=== PATIENT | male | born 1970 | race Caucasian/White ===

== ENCOUNTER 2018-06-08 23:12 | Outpatient (CLI) | payer OTHER | END 2018-06-08 23:13 | disposition critical access hospital (66) | LOC: EMS 23:12 | PROVIDERS: ATTEND Surgery | DX: R40.20 Unspecified coma (principal) | CPT/HCPCS: A0425; A0429 ==

== ENCOUNTER 2018-06-08 23:28 | Emergency (ER) | payer OTHER ==
[2018-06-08] MEDS ORDERED: SODIUM CHLORIDE 0.9% 1,000 ML IV STA (23:40)
[2018-06-09 00:20] LABS: BASOPHILS % (AUTO) 0.4 %; EOSINOPHILS # (AUTO) 0.1 10^3/uL (0.0-0.7); EOSINOPHILS % (AUTO) 0.7 %; HGB - HEMOGLOBIN 14.3 g/dL (14.0-18.0); LYMPHOCYTES # (AUTO) 1.2 10^3/uL (1.5-3.5); LYMPHOCYTES % (AUTO) 14.5 %; MEAN CORPUSCULAR HEMOGLOBIN 29.5 pg (27.0-31.0); MEAN CORPUSCULAR HGB CONC 34.6 g/dL (32.0-36.0); MEAN CORPUSCULAR VOLUME 85.4 fL (80.0-94.0); MEAN PLATELET VOLUME 8.4 fL (7.4-11.4); MONOCYTES # (AUTO) 0.3 10^3/uL (0.0-1.0); MONOCYTES % (AUTO) 4.2 %; NEUTROPHILS # (AUTO) 6.5 10^3/uL (1.5-6.6); NEUTROPHILS % (AUTO) 80.2 %; PLT - PLATELET COUNT 221 10^3/uL (130-450); RED BLOOD COUNT 4.84 10^6/uL (4.70-6.10); RED CELL DISTRIBUTION WIDTH 13.8 % (12.0-15.0)
--- NOTE | 2018-06-09 00:22 | XRAY Report ---
Reason: Chest Pain Procedure Date: 06/09/2018 Accession Number: [id number] / [id number] Procedure: XR - Chest 1 View X-Ray CPT Code: 49839 FULL RESULT: EXAM: CHEST RADIOGRAPHY EXAM DATE: 06/09/2018 12:14 AM. CLINICAL HISTORY: Chest Pain. COMPARISON: None. TECHNIQUE: 1 view. FINDINGS: Lungs/Pleura: No alveolar consolidation or pleural effusion seen. No pneumothorax. Mediastinum: Within exam limitations, heart appears mildly enlarged. Other: None. IMPRESSION: 1. Mild cardiomegaly. No acute abnormality seen. RADIA
[2018-06-09 00:27] LABS: ALBUMIN 4.2 g/dL (3.2-5.5); ALBUMIN/GLOBULIN RATIO 1.2 (1.0-2.2); BILIRUBIN,TOTAL 0.6 mg/dL (0.2-1.0); CALCIUM 9.1 mg/dL (8.5-10.3); CREATININE 1.2 mg/dL (0.6-1.2); TOTAL PROTEIN 7.7 g/dL (6.7-8.2)
--- NOTE | 2018-06-09 01:00 | ED Physician Documentation ---
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 09/16/14 Ibuprofen [Motrin] 800 mg PO Q8H PRN #30 tablet 09/16/14 Oxycodone HCl/Acetaminophen 1 - 2 each PO Q6H PRN #30 tablet 09/16/14 [Percocet 5-325 mg Tablet] - Allergies Allergies/Adverse Reactions: Allergies Allergy/AdvReac Type Severity Reaction Status Date / Time No Known Drug Allergies Allergy Verified 06/08/18 23:34 - Social History Does the pt smoke?: No Smoking Status: Never smoker Does the pt drink ETOH?: Yes Does the pt have substance abuse?: No - Immunizations Immunizations are current?: Yes Immunizations: TDAP current <10years - POLST Patient has POLST: No Results - Vitals Vitals: Vital Signs - 24 hr 06/08/18 06/09/18 23:29 00:24 Temperature 36.4 C L Heart Rate 78 83 Respiratory 16 16 Rate Blood Pressure 132/90 H 129/76 O2 Saturation 97 98 Oxygen O2 Source Room air - Labs Labs: Laboratory Tests 06/08/18 06/08/18 06/08/18 00:04 00:04 00:04 WBC 8.0 RBC 4.84 Hgb 14.3 Hct 41.4 L MCV 85.4 MCH 29.5 MCHC 34.6 RDW 13.8 Plt Count 221 MPV 8.4 Neut # (Auto) 6.5 Lymph # (Auto) 1.2 L [place] # (Auto) 0.3 Eos # (Auto) 0.1 Baso # (Auto) 0.0 Absolute Nucleated RBC 0.00 Nucleated RBC % 0.0 Sodium 138 Potassium 3.8 Chloride 101 Carbon Dioxide 28 Anion Gap 9.0 BUN 16 Creatinine 1.2 Estimated GFR (MDRD) 65 L Glucose 159 H Calcium 9.1 Total Bilirubin 0.6 AST 46 H ALT 35 Alkaline Phosphatase 65 Troponin I < 0.04 Total Protein 7.7 Albumin 4.2 Globulin 3.5 Albumin/Globulin Ratio 1.2 Lipase 38 Departure - Departure Disposition: 01 Home, Self Care Clinical Impression: Syncope Qualifiers: Syncope type: unspecified Qualified Code(s): R55 - Syncope and collapse Condition: Stable Instructions: ED Syncope Vasovagal, ED Fainting Unkn Cause Follow-Up: Your, PCP [Other] Comments: Follow-up with PCP within 24 hours. Return with worsening symptoms.
[2018-06-09 01:04] VITALS: BP 122/77
--- NOTE | 2018-06-09 01:04 | ED Physician Documentation ---
PD HPI SYNCOPE - Stated complaint Stated Complaint: SYNCOPE - Chief complaint Chief Complaint: Neuro - History obtained from History obtained from: Patient, Family - History of Present Illness Witnessed: Witnessed Timing - onset: How many hours ago (2) Duration: Hours (2) Preceding symptoms: Light headed Associated symptoms: No: Seizure, Chest pain, Palpitations Contributing factors: Other (Marijuana use) Pain level max: 0 Pain level now: 0 Severity Comments: mild Review of Systems Constitutional: reports: Reviewed and negative Eyes: reports: Reviewed and negative Ears: reports: Reviewed and negative Nose: reports: Reviewed and negative Throat: reports: Reviewed and negative Cardiac: reports: Reviewed and negative Respiratory: reports: Reviewed and negative GI: reports: Reviewed and negative : reports: Reviewed and negative Skin: reports: Reviewed and negative Musculoskeletal: reports: Reviewed and negative Neurologic: reports: Reviewed and negative Psychiatric: reports: Reviewed and negative Endocrine: reports: Reviewed and negative Immunocompromised: reports: Reviewed and negative PD PAST MEDICAL HISTORY - Past Medical History Past Medical History: Yes Cardiovascular: Hypertension : Kidney stones - Past Surgical History 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 09/16/14 Ibuprofen [Motrin] 800 mg PO Q8H PRN #30 tablet 09/16/14 Oxycodone HCl/Acetaminophen 1 - 2 each PO Q6H PRN #30 tablet 09/16/14 [Percocet 5-325 mg Tablet] - Allergies Allergies/Adverse Reactions: Allergies Allergy/AdvReac Type Severity Reaction Status Date / Time No Known Drug Allergies Allergy Verified 06/08/18 23:34 - Social History Does the pt smoke?: No Smoking Status: Never smoker Does the pt drink ETOH?: Yes Does the pt have substance abuse?: No - Immunizations Immunizations are current?: Yes Immunizations: TDAP current <10years - POLST Patient has POLST: No PD ED PE NORMAL - Vitals Vital signs reviewed: Yes - General General: Alert and oriented X 3, No acute distress - HEENT HEENT: PERRL - Neck Neck: Supple, no meningeal sign - Cardiac Cardiac: RRR, No murmur - Respiratory Respiratory: Clear bilaterally - Abdomen Abdomen: Normal bowel sounds, Soft, Non tender, Non distended - Derm Derm: Warm and dry - Extremities Extremities: No deformity - Neuro Neuro: Alert and oriented X 3 - Psych Psych: Normal mood, Normal affect Results - Vitals Vitals: Vital Signs - 24 hr 06/08/18 06/09/18 23:29 00:24 Temperature 36.4 C L Heart Rate 78 83 Respiratory 16 16 Rate Blood Pressure 132/90 H 129/76 O2 Saturation 97 98 Oxygen O2 Source Room air - EKG (time done) 0049 Rate: Rate (enter#) (62) Rhythm: NSR [place]: Normal Intervals: Normal NE, QRS normal QRS: Normal Ischemia: Normal ST segments. No: T wave inversion - Labs Labs: Laboratory Tests 06/08/18 06/08/18 06/08/18 00:04 00:04 00:04 WBC 8.0 RBC 4.84 Hgb 14.3 Hct 41.4 L MCV 85.4 MCH 29.5 MCHC 34.6 RDW 13.8 Plt Count 221 MPV 8.4 Neut # (Auto) 6.5 Lymph # (Auto) 1.2 L [place] # (Auto) 0.3 Eos # (Auto) 0.1 Baso # (Auto) 0.0 Absolute Nucleated RBC 0.00 Nucleated RBC % 0.0 Sodium 138 Potassium 3.8 Chloride 101 Carbon Dioxide 28 Anion Gap 9.0 BUN 16 Creatinine 1.2 Estimated GFR (MDRD) 65 L Glucose 159 H Calcium 9.1 Total Bilirubin 0.6 AST 46 H ALT 35 Alkaline Phosphatase 65 Troponin I < 0.04 Total Protein 7.7 Albumin 4.2 Globulin 3.5 Albumin/Globulin Ratio 1.2 Lipase 38 - Rads (name of study) Chest XRAY Radiology: Final report received (mild cardiomegaly) PD MEDICAL DECISION MAKING - ED course Complexity details: reviewed results, re-evaluated patient, considered differential, d/w patient, d/w family ED course: 47-year-old male with syncopal episode at home.Patient felt lightheaded prior to incident. He denies any chest pain or palpitations. EKG and troponin were within normal limits. Mild cardiomegaly on chest x-ray with no signs of failure.Patient to follow-up with PCP regarding cardiomegaly. No acute cause of syncope identified at this time. Departure - Departure Disposition: Home, Self Care Clinical Impression: Syncope Qualifiers: Syncope type: unspecified Qualified Code(s): R55 - Syncope and collapse Condition: Stable Instructions: ED Syncope Vasovagal, ED Fainting Unkn Cause Follow-Up: Your, PCP [Other] Comments: Follow-up with PCP within 24 hours. Return with worsening symptoms.
== END 2018-06-09 01:10 | disposition home or self-care (01) ==
LOC: EDUNIT# → ED 23:28
DX: R55 Syncope and collapse (principal); I11.9 Hypertensive heart disease without heart failure
CPT/HCPCS: 36415; 71045; 80053; 83690; 84484; 85025; 93005; 96360; 99283; 99284

== ENCOUNTER 2018-10-12 09:02 | Outpatient (CLI) | payer BC, OTHER ==
[2018-10-12 10:57] VITALS: BP 108/78
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
== END 2018-10-12 09:03 | disposition home or self-care (01) ==
LOC: SC 09:02
PROVIDERS: ATTEND Internal Medicine Pulmonary Disease
DX: G47.10 Hypersomnia, unspecified (principal); R06.83 Snoring; R41.89 Other symptoms and signs involving cognitive functions and awareness; G47.8 Other sleep disorders
CPT/HCPCS: 99203; 99212

== ENCOUNTER → 2018-11-14 | Outpatient (CLI) | payer BC | LOC: SC 20:00 | PROVIDERS: ATTEND Internal Medicine Pulmonary Disease | DX: G47.33 Obstructive sleep apnea (adult) (pediatric) (principal) | CPT/HCPCS: 95806 ==